=== PATIENT | female | born 1995 | race Caucasian/White ===

== ENCOUNTER 2016-10-08 12:09 | Emergency (ER) | payer BC, OTHER ==
[~2016-10-08] VITALS: Ht 157.5 cm; Wt 63.3 kg
[2016-10-08 12:12] VITALS: Ht 157.5 cm; Wt 63.3 kg
[2016-10-08] MEDS ORDERED: IBUPROFEN 600 MG TAB PO STA (12:22)
[2016-10-08] MEDS ORDERED: HYDROCODONE/ACETAMOPHEN 5/325MG TAB PO ONE (12:30)
[2016-10-08] MEDS ORDERED: AMOXICILLIN/CLAVULANATE TAB 875 MG TAB PO ONE (12:30)
[2016-10-08] MEDS ORDERED: XYLOCAINE 1%/SOD BICARB 20 ML VIAL INFIL ONE (12:30)
--- NOTE | 2016-10-08 12:58 | DIAGNOSTIC IMAGING REPORT ---
RIGHT HAND 3 VIEWS CLINICAL HISTORY: Dog bite injury. FINDINGS: 3 views of the right hand are obtained. No prior studies are available for comparison at the time of dictation. The skeletal structures are well mineralized. No fracture is identified. The joint spaces of the hand are well-maintained. Mild dorsal soft tissue swelling is identified. No radiodense foreign body or subcutaneous gas is seen. IMPRESSION: Mild soft tissue swelling with no radiographic evidence of acute fracture. Electronically signed by: Ahsan Huertas M.D. 10/08/2016 12:57 PM Dictated Date/Time: 10/08/2016 12:55 PM
[2016-10-08] MEDS ORDERED: HYDR-5688 PO (14:02)
[2016-10-08] MEDS ORDERED: AMOX875T PO (14:02)
[2016-10-08 14:16] VITALS: BP 127/78; PULSE 98; TEMP 36.9; O2SAT 97
--- NOTE | 2016-10-08 16:41 | EMERGENCY ROOM VISIT NOTE ---
History First contact with patient: 12:14 Chief Complaint: BITE Stated Complaint: DOG BITE History of Present Illness The patient is a 21 year old female who presents to the Emergency Room with complaints of several injuries after being attacked by a dog about 2 hours ago. The patient states that she was walking her dog, when another dog attacked her dog. The other dog was on a leash, and evidently has a history of unprovoked attacks in the past. The patient ended up with injuries to her right hand, right forearm, right leg, and left-sided face. The patient does have pain in these areas as well. The police are involved in the incident, and the attacking animal is reportedly up-to-date on its rabies immunizations. The patient rates her current discomfort an 8/10, worse in her hand when she opens and closes it. She has not taken anything [id number] for her discomfort. She is reportedly up-to-date on her tetanus. Review of Systems More than 10 systems were reviewed and otherwise negative with the exception of history of present illness. Past Medical/Surgical History No chronic medical disease Family History No pertinent family history Social History Smoking Status: Never Smoker Housing Status: lives with family Occupation Status: employed Current/Historical Medications Scheduled Amoxicillin & Pot Clavulanate (Augmentin 875-125 mg), 1 TAB PO BID Scheduled PRN Hydrocodone/Acetaminophen 5MG/325MG (Bly 5MG/325MG), 1 TABLET PO Q6 PRN for Pain Allergies Coded Allergies: No Known Allergies (Unverified , 10/08/16) Physical Exam Vital Signs Date Time Temp Pulse Resp B/P Pulse Ox O2 Delivery O2 Flow Rate FiO2 10/08/16 14:16 36.9 98 18 127/78 97 10/08/16 12:12 36.9 98 18 127/78 97 Room Air Pain Rating (0-10): 0 Physical Exam VITALS: Vitals are noted on the nurse's note and reviewed by myself. Vital signs stable. GENERAL: Well-developed, well-nourished, white female who is in moderate discomfort secondary to her stated complaints. She is cooperative with the examination. HEAD: Superficial abrasion appreciated behind the left ear EARS: External ear normal. External auditory canals clear, tympanic membranes pearly vargas without erythema or effusion bilaterally. EYES: Pupils equal round and reactive to light and accommodation. Conjunctivae without injection, sclerae without icterus. Extraocular movements intact. NOSE: Patent, turbinates without inflammation or discharge. MOUTH: Mucous membranes moist. Tonsils are not enlarged. Pharynx without erythema, blood, or exudate. Uvula midline. Airway patent. NECK: Supple without nuchal rigidity. No lymphadenopathy. No thyromegaly. Cervical spine is nontender. HEART: Regular rate and rhythm without murmurs gallops or rubs. LUNGS: Clear to auscultation bilaterally without wheezes, rales or rhonchi. No retractions or accessory muscle use. ABDOMEN: Positive normal bowel sounds x 4. Soft, nontender, without masses or organomegaly. No guarding or rebound tenderness. MUSCULOSKELETAL: Ecchymosis and edema is appreciated over the right hand, primarily over the dorsal third and fourth metacarpals. The patient food service ambassador strength is 3/5 in this extremity. There is a linear 3.0 cm laceration over the mid volar forearm. Superficial abrasions are also appreciated over the right leg and left elbow. No other significant lacerations or gross bleeding appreciated. There does seem to be a puncture wound to the posterior right hand. Neurovascular status is intact throughout. NEURO: Patient was alert and oriented to person place and time. CN II through XII grossly intact. Medical Decision & Procedures ER Provider Diagnostic Interpretation: RIGHT HAND 3 VIEWS CLINICAL HISTORY: Dog bite injury. FINDINGS: 3 views of the right hand are obtained. No prior studies are available for comparison at the time of dictation. The skeletal structures are well mineralized. No fracture is identified. The joint spaces of the hand are well-maintained. Mild dorsal soft tissue swelling is identified. No radiodense foreign body or subcutaneous gas is seen. IMPRESSION: Mild soft tissue swelling with no radiographic evidence of acute fracture. Medications Administered Medications (Trade) Dose Ordered Sig/Sri Route Start Time Stop Time Status Last Admin Dose Admin Lidocaine HCl (Buffered Lidocaine 1% Inj) 20 ml NOW ONCE INFIL 10/08/16 12:30 10/08/16 12:31 DC 10/08/16 12:33 20 ML Acetaminophen/ Hydrocodone Bitart (Bly 5/325 Tab) 1 tab NOW ONCE PO 10/08/16 12:30 10/08/16 12:31 DC 10/08/16 12:33 1 TAB Ibuprofen (Motrin Tab) 600 mg NOW STAT PO 10/08/16 12:22 10/08/16 12:24 DC 10/08/16 12:34 600 MG Amoxicillin/ Clavulanate Potassium (Augmentin Tab) 875 mg NOW ONCE PO 10/08/16 12:30 10/08/16 12:31 DC 10/08/16 12:36 875 MG Procedure Laceration repair. Patient elects to have their laceration repaired. Verbal consent was obtained to perform the procedure. There is an abundance of materials available for the procedure. Patient is not allergic to latex. Using sterile technique the wound was cleaned with Betadine. The area was sterilely draped. 5 ml of 1% buffered lidocaine was used to anesthetize the forearm laceration. Once the patient was anesthetized, the wound was copiously irrigated under pressure with sterile saline. The wound was explored and there were no deep structures injured such as tendons, bone, or significant blood vessels. The laceration was repaired using 3 simple interrupted 5-0 nylon sutures with the wound edges being loosely approximated. Hemostasis was achieved. The area was cleaned with sterile saline and dressed with bacitracin ointment and bandage. Patient tolerated the procedure well without complications. Blood loss was negligible. ED Course Physical exam and history were performed. Nursing notes and EMR were reviewed. Patient appears to have suffered multiple injuries in a dog attack a few hours ago. The police are involved and the dog bite form has been completed. The patient wounds were cleansed and dressed, and her primary injuries appear to be to the right hand and the right forearm. An x-ray was obtained of the right hand does not show evidence of foreign body or bony injury. The right forearm does have a laceration that does gape, and was loosely closed as above. The patient was given Vicodin and Augmentin here in the department. I had a lengthy discussion with the patient and her family regarding possible need for rabies immunizations. The family has verbal confirmation that the animal is up-to-date on the rabies shots, however we do not have confirmation of this by the director search or with a certificate/receipt of the shot. Because of this I did offer rabies prophylaxis, however the family is confident they can obtain this information by the process owner of the animal. I did ask them to return later today if they are not able to adequately obtain this information, and they were pleased with this. The patient will be given a continued course of Augmentin and a short course of Vicodin. She is otherwise asked to follow with her PCP with any ongoing or persisting symptoms. The chart was completed utilizing [employer] Speech Voice Recognition Software. Grammatical errors, random word insertions, pronoun errors, and incomplete sentences are an occasional consequence of this system due to software limitations, ambient noise, and hardware issues. Any formal questions or concerns about the content, text, or information contained within the body of this dictation should be directly addressed to the provider for clarification. . Medical Decision Differential diagnosis includes, but is not limited to: Sprain, strain, dog bite , assault, infection, foreign body, laceration, and others Impression Primary Impression: Dog bite Additional Impression: Laceration of forearm Departure Information Dispostion Home / Self-Care Condition GOOD Prescriptions Hydrocodone/Acetaminophen 5MG/325MG (Bly 5MG/325MG) Tab 1 TABLET PO Q6 Y for Pain, #12 TAB For Initial Treatment Prov: Kwesi Ruelas PA-C 10/08/16 Amoxicillin & Pot Clavulanate (Augmentin 875-125 mg) 1 Tab Tab 1 TAB PO BID for 10 Days, #20 TAB Prov: Kwesi Ruelas PA-C 10/08/16 Forms HOME CARE DOCUMENTATION FORM, IMPORTANT VISIT INFORMATION Patient Instructions My [facility] Additional Instructions You were seen and evaluated today on an emergency basis only. This is not a substitute for, or an effort to provide, complete comprehensive medical care. It is not possible to recognize and treat all injuries or illnesses in a single emergency department visit. For this reason it is recommended that you followup with your primary care physician in the next 2-3 days for recheck of your condition. For baseline pain relief you may alternate ibuprofen and acetaminophen every 4 hours for pain control. Take 600 mg ibuprofen (Advil) and then 4 hours later take 1000 mg acetaminophen (Tylenol). Do not take more than 3000 mg acetaminophen in a single day. Bly (hydrocodone/acetaminophen) 5/325 mg every 6 hours as needed for worsening breakthrough pain. Do not drink or drive on Bly. This medication will likely make you tired. Do not take Bly and Tylenol at the same time as both contain acetaminophen. Bly may cause constipation. You may wish to take an [id number] stool softener like Colace if this occurs. Amoxicillin Clavulanate (Augmentin) 875mg: Take one pill twice daily for 10 days for your infection. All antibiotics can cause diarrhea. If this occurs and you feel worse or it does not resolve in 1-2 days follow up with your doctor or return to the Emergency Department as this could be signs of serious underlying problems. Any medication can cause an allergic reaction, stop the pills immediately and return to the ER for rash, hives, breathing difficulties, or swelling. If you are unable to confirm the animal's rabies status please return to the emergency department to begin rabies shots. You are welcome to return to the emergency department anytime with new, worsening, or concerning symptoms. Problem Qualifiers
== END 2016-10-08 14:17 | disposition home or self-care (01) ==
LOC: C.EDB 12:11 → C.EDD 14:17
DX: S51.851A Open bite of right forearm, initial encounter (principal); S00.412A Abrasion of left ear, initial encounter; S50.312A Abrasion of left elbow, initial encounter; S80.811A Abrasion, right lower leg, initial encounter; W54.0XXA Bitten by dog, initial encounter; Y93.K1 Activity, walking an animal

== ENCOUNTER 2020-01-12 05:29 | Inpatient (IN) ==
[2020-01-12] MEDS: LACTATED RINGER'S 1,000 ML IV SCH ×2 (05:40→06:44)
[2020-01-12] MEDS ORDERED: LACTATED RINGER'S 1,000 ML IV SCH ×2 (05:45→09:45)
[2020-01-12] MEDS ORDERED: CITRIC ACID/SODIUM CITRATE 15 ML UDC PO SCH (06:00)
[2020-01-12] MEDS ORDERED: CEFAZOLIN 2,000 MG in SYRINGE 0 ML IV SCH (06:00)
[2020-01-12 06:20] LABS: Basophils # (auto) 0.01 K/uL (0-0.2); Basophils % (auto) 0.1 %; Eosinophils # (auto) 0.07 K/uL (0-0.5); Eosinophils % (auto) 0.8 %; Hematocrit (blood only) 31.4 % (37-47); Hemoglobin 10.3 g/dL (12.0-16.0); Immature Granulocytes # (auto) 0.05 K/uL (0.00-0.02); Immature Granulocytes % (auto) 0.6 %; Lymphocytes # (auto) 1.71 K/uL (1.2-3.4); Mean Corpuscular Hemoglobin 28.1 pg (25-34); Mean Corpuscular Volume 85.8 fL (80-100); Monocytes # (auto) 0.79 K/uL (0.11-0.59); Monocytes % (auto) 9.2 %; Neutrophils # (auto) 5.94 K/uL (1.4-6.5); Neutrophils % (auto) 69.3 %; Platelet Count 233 K/uL (130-400); RDW Coefficient of Variation 13.1 % (11.5-14.5); RDW Standard Deviation 40.8 fL (36.4-46.3); Red Blood Count 3.66 M/uL (4.2-5.4); White Blood Count 8.57 K/uL (4.8-10.8)
[2020-01-12 06:21] LABS: Mean Corpuscular Hgb Conc 32.8 g/dL (32-36)
[2020-01-12] MEDS ORDERED: MoRPHine SULFATE PF 1 MG/ML 10 ML AMP/VIAL ONE (06:45)
[2020-01-12] MEDS ORDERED: fentaNYL citrate 100 MCG/2 ML VIAL ONE (06:45)
[2020-01-12] MEDS ORDERED: OXYTOCIN 10 UNITS/ML VIAL ONE (06:45)
[2020-01-12] MEDS ORDERED: NALOXONE HCL 0.4 MG/1 ML VIAL/CARP IV PRN (07:03)
[2020-01-12] MEDS ORDERED: MoRPHine SULFATE 2 MG/ML CARP IV PRN (07:03)
[2020-01-12] MEDS ORDERED: MoRPHine SULFATE PF 1 MG/ML 10 ML AMP/VIAL INT SPINAL ONE (07:03)
[2020-01-12] MEDS ORDERED: PROMETHAZINE HCL 12.5 MG in SODIUM CHLORIDE 0.9% 50 ML IV PRN (07:03)
[2020-01-12] MEDS ORDERED: DiphenhydrAMINE HCL 50 MG/ML VIAL IV PRN (07:03)
[2020-01-12] MEDS ORDERED: LACTATED RINGER'S 500 ML IV PRN (07:03)
[2020-01-12] MEDS ORDERED: NALOXONE HCL 0.08 MG in SYRINGE 1.8 ML IV PRN (07:03)
[2020-01-12] MEDS ORDERED: ePHEDrine sulfate 50 MG/ML AMP IV PRN (07:03)
[2020-01-12] MEDS ORDERED: ONDANSETRON INJ 2 MG/ML 2 ML VIAL IV PRN (07:03)
[2020-01-12] MEDS ORDERED: NALOXONE HCL 1 MG in SODIUM CHLORIDE 0.9% 1000ML 1,000 ML IV PRN (07:03)
--- NOTE | 2020-01-12 07:06 | Anesthesiology Consultation ---
Date of Service January 12, 2020 Assessment & Plan ASA ASA2 Proposed Anesthesia Anesthesia Type: Spinal Risk / Benefits Reviewed With: PT / POA / Parent / Guardian, Accepts Plan and Informed Consent Obtained History Surgery Operation Date: 01/12/20 07:30 Proposed Procedures p Section - Candi Alejandro MD Height/Weight Height: 5 ft 2 in Weight: 90.718 kg Allergies Allergy/AdvReac Type Severity Reaction Status Date / Time gluten AdvReac Diarrhea Verified 01/12/20 06:06 Medications Home Medications Medication Instructions Recorded Confirmed Last Taken prenat.vits,nathan,naf-holw-apnww 1 tab PO DAILY 01/12/20 01/12/20 01/11/20 08:00 [ Vitamin] Active Medications Generic Name Dose Route Start Last Admin Trade Name Freq PRN Reason Stop Dose Admin Lactated Ringer's 1,000 mls @ 999 mls/hr 01/12/20 06:00 01/12/20 06:44 Lr IV 01/12/20 18:00 125 mls/hr .Q1H1M SHANNA Administration NPO Date Last Intake of Fluids: 01/12/20 Time Last Intake of Fluids: 00:00 Date Last Intake of Solids: 01/12/20 Time Last Intake of Solids: 00:00 Past Medical History Medical History Celiac disease High blood pressure during the last two weeks and OB is monitoring Exercise / Class Metabolic Activity II 4-5 Yardwork/Stairs/Walk up hill Past Surgical History Surgical History History of tonsillectomy and adenoidectomy Hx of colonoscopy Hx of esophagogastroduodenoscopy Past Anesthesia History No Hx of Anesthesia Complications and No Family Hx of Anesthesia Complications History of PONV No Hx of PONV and No Hx of Motion Sickness Social History Smoking Status: Never smoker Do You Dip or Chew Tobacco: No Smoking End Date: 2013 Hx Alcohol Use: No Hx Substance Use: No substance use type: does not use Review of Systems denies fever/cough/ colds/ chest pain/ SOB/ TERRI Constitutional: no fever and no chills Respiratory: no cough and no dyspnea denies TERRI Cardiovascular: no chest pain and no dyspnea on exertion Physical Exam Vital Signs Last Vital Signs Temp 36.7 C 01/12/20 05:39 Pulse 92 H 01/12/20 07:04 Resp 18 01/12/20 05:39 BP 146/94 H 01/12/20 07:04 ENMT Mouth: no TMJ abnormality and no dentition abnormality Thyromental Distance: > or= 3.5 Finger Breadths Mallampati Class: II Neck neck extension not limited Respiratory normal respiratory effort; no respiratory distress Auscultation: lungs clear to auscultation bilaterally Cardiovascular Rate/Rhythm: regular rate and regular rhythm Neurologic moves all extremities Psychiatric Orientation: alert and oriented x 3 Testing Laboratory Results 01/12/20 05:56
[2020-01-12] MEDS ORDERED: SODIUM CHLORIDE 0.9% 1000ML 1,000 ML IV SCH (07:15)
[2020-01-12] MEDS ORDERED: DC INTRASPINAL MORPHINE SCH (07:15)
[2020-01-12] MEDS ORDERED: NO NARCOTICS OR SEDATIVES SCH (07:15)
--- NOTE | 2020-01-12 07:26 | History & Physical Bridge Note ---
Date of Service January 12, 2020 History & Physical Bridge Note I have examined the patient, reviewed the History & Physical and in the interval since the performance of the History & Physical I have noted the following changes of clinical significance: no changes noted Bed side US: Eliseo, FHR 140's, categ I
[2020-01-12] MEDS ORDERED: ONDANSETRON INJ 2 MG/ML 2 ML VIAL ONE (08:28)
[2020-01-12] MEDS ORDERED: PHENYLEPHRINE 100MCG/ML 5ML SYR ONE (08:28)
[2020-01-12] MEDS ORDERED: DIPHTHERIA/TETANUS/PERTUSSIS 0.5 ML SYR/VIAL IM ONE (09:31)
[2020-01-12] MEDS ORDERED: BENZOCAINE 20% AER SPR 82.5 GM CAN EXT PRN (09:31)
[2020-01-12] MEDS ORDERED: MAGNESIUM HYDROXIDE SUSP 30 ML UDC PO PRN (09:31)
[2020-01-12] MEDS ORDERED: SUPERCREAM 0.870% 15 GM JAR EXT PRN (09:31)
[2020-01-12] MEDS ORDERED: HYDROCORTISONE ACETATE 25 MG SUPP PR PRN (09:31)
[2020-01-12] MEDS ORDERED: MEASLES, MUMPS & RUBELLA VIRUS VIAL SQ ONE (09:31)
[2020-01-12] MEDS ORDERED: SENNA 8.6 MG TAB PO PRN (09:31)
--- NOTE | 2020-01-12 09:31 | Post Operative Brief Note ---
Immediate Post Op Note v1 Date of Surgery January 12, 2020 Pre & Post Diagnosis Operation Date: 01/12/20 07:30 Pre-Op Diagnosis: primary cesearean section for breech presentation Post-Op Diagnosis: ceserean section for breech presentation of live male infant at 0817 I identified the patient and participated in the time-out.: Yes Procedure Operation Date: 01/12/20 07:30 Actual Procedures p Section in labor and delivery for live male infant at 0817(Left) - Candi Alejandro MD Surgeon Candi Alejandro MD Silk Opener UZAIR Estimated Blood Loss 600 Findings Consistent with Post-Op Diagnosis Drains Cruz Catheter Anesthesia Type Spinal Complications none
--- NOTE | 2020-01-12 10:13 | Anesthesiology Progress Note ---
Date of Service January 12, 2020 Anesthesia Post Procedure Vital Signs Vital Signs: Temp Pulse Resp BP Pulse Ox 01/12/20 10:08 89 99 01/12/20 10:04 108 H 135/99 01/12/20 10:03 110 H 98 01/12/20 09:58 98 H 99 01/12/20 09:55 20 01/12/20 09:54 101 H 135/80 01/12/20 09:53 103 H 98 01/12/20 09:48 114 H 97 01/12/20 09:45 114 H 20 145/75 H 97 01/12/20 09:44 109 H 171/90 H 01/12/20 09:43 106 H 98 01/12/20 09:38 98 H 97 01/12/20 09:35 18 01/12/20 09:34 117 H 167/95 H 01/12/20 09:33 122 H 98 01/12/20 09:28 136 H 98 01/12/20 09:25 18 01/12/20 09:24 120 H 18 144/71 H 01/12/20 09:23 116 H 60 L 01/12/20 09:18 114 H 99 01/12/20 09:13 36.9 C 100 H 16 145/68 H 100 01/12/20 09:08 120 H 100 01/12/20 07:04 92 H 146/94 H 01/12/20 07:00 36.7 C 20 01/12/20 06:21 85 125/89 01/12/20 05:39 36.7 C 117 H 18 142/94 H 01/12/20 05:37 117 H 142/94 H 01/12/20 05:35 120 H 138/104 H Transfer of Care Handoff Completed per policy Notes Mental Status: alert / awake / arousable and participated in evaluation Patient Amnestic to Procedure: Yes Nausea / Vomiting: adequately controlled Pain: adequately controlled Airway Patency, RR, SpO2: stable & adequate BP & HR: stable & adequate Hydration State: stable & adequate Anesthetic Complications: no major complications apparent and Pt Satisfied with anesthetic care
[2020-01-12 10:43] LABS: Basophils # (auto) 0.02 K/uL (0-0.2); Basophils % (auto) 0.1 %; Eosinophils # (auto) 0.01 K/uL (0-0.5); Eosinophils % (auto) 0.1 %; Hemoglobin 10.5 g/dL (12.0-16.0); Immature Granulocytes # (auto) 0.09 K/uL (0.00-0.02); Immature Granulocytes % (auto) 0.7 %; Lymphocytes # (auto) 1.01 K/uL (1.2-3.4); Lymphocytes % (auto) 7.5 %; Mean Corpuscular Hemoglobin 28.3 pg (25-34); Mean Corpuscular Hgb Conc 32.8 g/dL (32-36); Mean Corpuscular Volume 86.3 fL (80-100); Mean Platelet Volume 10.9 fL (7.4-10.4); Monocytes # (auto) 0.81 K/uL (0.11-0.59); Neutrophils # (auto) 11.57 K/uL (1.4-6.5); Neutrophils % (auto) 85.6 %; Platelet Count 260 K/uL (130-400); RDW Coefficient of Variation 13.3 % (11.5-14.5); RDW Standard Deviation 41.7 fL (36.4-46.3); Red Blood Count 3.71 M/uL (4.2-5.4); White Blood Count 13.51 K/uL (4.8-10.8)
[2020-01-12] MEDS: OXYTOCIN 20 UNITS in LACTATED RINGER'S 1,000 ML IV SCH ×2 (10:53→18:34)
[2020-01-12 11:07] LABS: Albumin Level 2.2 gm/dl (3.4-5.0); BUN Creatinine Ratio 11.7 (10-20); Calcium 8.3 mg/dl (8.5-10.1); Est GFR (African American) 144.2; Est GFR (Non-African American) 124.4; Potassium 4.2 mmol/L (3.5-5.1)
[2020-01-12 11:10] LABS: Albumin Globulin Ratio 0.7 (0.9-2); Bilirubin,Total 0.4 mg/dl (0.2-1); Globulin 3.3 gm/dl (2.5-4.0); Total Protein 5.5 gm/dl (6.4-8.2)
--- NOTE | 2020-01-12 11:17 | Operative Report (OR) ---
DATE OF OPERATION: 01/12/2020 PREOPERATIVE DIAGNOSES: The patient is a 24-year-old 1, para 0, at 39.1 weeks of gestation Breech presentation at term. Declined external cephalic version. POSTOPERATIVE DIAGNOSES: The patient is a 24-year-old 1, para 0, at 39.1 weeks of gestation Breech presentation at term. Declined external cephalic version. PROCEDURE: Primary low transverse with Pfannenstiel skin incision. SURGEON: Candi Alejandro MD. CONTROLS PROJECT ENGINEER: Jabari Ag MD. ESTIMATED BLOOD LOSS: 600 mL. DRAINS: Cruz catheter drained 300 mL of urine. FLUIDS: 1200 mL of lactated Ringer. ANESTHESIA: Spinal. ANESTHESIOLOGIST: Dr. Larkin. COMPLICATIONS: None. FINDINGS: Baby was a viable male delivered at 8:17 a.m. in complete breech presentation, Apgars were 8/9, weight was 3680 grams. Maternal findings; normal uterus, fallopian tubes and ovaries. DESCRIPTION OF PROCEDURE: The patient was taken to the operating room where spinal anesthesia was given without difficulty. She was placed in dorsal supine position with a leftward tilt. She was prepared and draped in usual sterile fashion. A Pfannenstiel skin incision was made and carried through to the underlying layer of fascia with the Bovie. Fascia was incised in the midline and incision was extended laterally with the help of Musa scissors and upper aspect of the fascial incision was then grasped with 2 Marialuisa clamps, elevated, underlying rectus muscles were dissected off sharply with Musa scissors. Lower aspect of the fascial incision was then grasped with 2 Marialuisa clamps, elevated, underlying rectus muscles were dissected off sharply with Musa scissors. Rectus muscles were in the midline. Peritoneum was entered bluntly with fingers and the peritoneal incision was extended superiorly and inferiorly with good visualization of the bladder. Then, Daren abdominal retractor was placed to retract the abdominal wall and the vesicouterine peritoneum was identified, grasped with pickups and entered sharply with Metzenbaum scissors and a bladder flap was created digitally and a bladder blade was inserted. Lower uterine segment was incised in transverse fashion, incision was extended laterally with the help of fingers. Membranes ruptured, clear fluid was obtained. Baby's buttocks were delivered and then legs and then body and then arms in flexion position and head without difficulty. Mouth and nose were suctioned. Cord was clamped x2 and cut in 1 minute delay and baby was handed off to the waiting pediatric team. Placenta was delivered manually as intact and complete. Uterus was exteriorized, cleared of all clots and debris. Uterine incision was repaired with 0 Vicryl in a running locked fashion and a second imbricating layer was placed with 0 Vicryl in a running fashion. Excellent hemostasis was achieved. The uterus was returned to the abdomen. The pelvis was irrigated with warm normal saline and suctioned. Incision was checked to be again hemostatic. Parietal peritoneum was reapproximated with 3-0 Vicryl in a running fashion. Rectus muscles were reapproximated with 2 U-type of sutures with 2-0 Vicryl and excellent hemostasis was achieved. Rectus fascia was reapproximated with 0 Vicryl in a running fashion starting from both corners and meeting in the midline. Subcuticular fat tissue was brought together with 3-0 Vicryl in a running fashion. Skin was closed with 4-0 Monocryl in a subcuticular fashion. The patient tolerated the procedure well. Sponge, lap, needle count was correct x3. She was taken to recovery room in stable condition, no complications happened. I was and Dr. Ag was present during whole procedure. My hr administrative assistant was needed for retraction, visualization, suction and hemostasis as well as assisting with delivery of baby. I attest to the content of the Intraoperative Record and any orders documented therein. Any exceptions are noted below. CATHLEEN
[2020-01-12] MEDS: KETOROLAC 30 MG/ML VIAL IV PRN (11:27)
[2020-01-12] MEDS ORDERED: KETOROLAC 30 MG/ML VIAL IV PRN (12:00)
[2020-01-12] MEDS: SIMETHICONE 80 MG CHEW PO SCH ×2 (16:03→21:42)
[2020-01-12] MEDS: DOCUSATE SODIUM 100 MG CAP PO SCH (21:42)
[2020-01-13] MEDS ORDERED: DiphenhydrAMINE HCL 50 MG/ML VIAL IV PRN (01:04)
[2020-01-13] MEDS ORDERED: ONDANSETRON INJ 2 MG/ML 2 ML VIAL IV PRN (01:04)
[2020-01-13] MEDS ORDERED: PROMETHAZINE HCL 25 MG in SODIUM CHLORIDE 0.9% 50 ML IV PRN (01:04)
[2020-01-13] MEDS ORDERED: MEPERIDINE HCL 50 MG/ML CARP IV PRN (01:04)
[2020-01-13] MEDS: KETOROLAC 30 MG/ML VIAL IV PRN (01:35)
[2020-01-13] MEDS: OXYCODONE/ACETAMINOPHEN 5mg/325mg TAB PO PRN ×5 (05:11→22:26)
[2020-01-13 05:58] LABS: Basophils # (auto) 0.02 K/uL (0-0.2); Basophils % (auto) 0.2 %; Eosinophils # (auto) 0.06 K/uL (0-0.5); Eosinophils % (auto) 0.6 %; Hematocrit (blood only) 27.4 % (37-47); Hemoglobin 9.1 g/dL (12.0-16.0); Immature Granulocytes # (auto) 0.04 K/uL (0.00-0.02); Immature Granulocytes % (auto) 0.4 %; Lymphocytes % (auto) 15.1 %; Mean Corpuscular Hemoglobin 29.1 pg (25-34); Mean Corpuscular Hgb Conc 33.2 g/dL (32-36); Mean Corpuscular Volume 87.5 fL (80-100); Mean Platelet Volume 10.4 fL (7.4-10.4); Monocytes # (auto) 0.96 K/uL (0.11-0.59); Monocytes % (auto) 10.3 %; Neutrophils % (auto) 73.4 %; Platelet Count 202 K/uL (130-400); RDW Coefficient of Variation 13.3 % (11.5-14.5); RDW Standard Deviation 43.1 fL (36.4-46.3); Red Blood Count 3.13 M/uL (4.2-5.4); White Blood Count 9.28 K/uL (4.8-10.8)
--- NOTE | 2020-01-13 08:14 | Obstetrical Progress Note ---
Date of Service January 13, 2020 Assessment & Plan (1) delivery delivered: POD #1 pt doing well continue day #1 care Subjective Ambulation: ambulating normally Voiding: no voiding problems Passing Gas:: Yes Diet Tolerance:: regular diet Lochia:: Small Feeding Type:: breast feeding Review of Systems All systems reviewed & are unremarkable except as noted in HPI & below Physical Exam Constitutional WD/WN, vitals as above well developed and well nourished Eyes PERRL, conjunctivae normal, anicteric sclerae Neck trachea midline, no thyromegaly Respiratory normal respiratory effort, lungs clear to auscultation Auscultation: no crackles, no rales and no wheezes Cardiovascular RRR, no murmur, no edema Gastrointestinal (Abdomen) normal bowel sounds, soft, nontender, no hepatosplenomegaly Uterus is below umbilicus Musculoskeletal no cyanosis or clubbing, extremities motor strength 5/5 Skin no rashes, warm and dry Neurologic patellar DTR's 2+ bilat, sensation intact Psychiatric A+Ox3, euthymic affect Genitourinary normal external appearance Results & Data ([facility]) Vital Signs (Past 12 Hours) Vital Signs Temp Pulse Resp BP Pulse Ox 01/13/20 08:00 36.8 C 86 18 114/76 97 01/13/20 04:50 36.8 C 84 16 114/75 98 01/13/20 01:30 36.9 C 85 15 112/72 100 01/13/20 00:40 16 100 01/12/20 23:40 16 99 01/12/20 22:40 15 98 01/12/20 21:40 16 99 01/12/20 20:40 15 98
[2020-01-13] MEDS: SIMETHICONE 80 MG CHEW PO SCH ×5 (08:38→20:04)
[2020-01-13] MEDS: IBUPROFEN 600 MG TAB PO PRN ×3 (08:38→22:25)
[2020-01-13] MEDS: DOCUSATE SODIUM 100 MG CAP PO SCH ×2 (08:39→20:04)
[2020-01-13] MEDS: PRENATAL VITAMIN 1 TAB PO SCH (08:40)
[2020-01-13] MEDS: FERROUS SULFATE 325 MG TAB PO SCH (08:40)
[2020-01-13] MEDS ORDERED: bisacodyL 5 MG TABEC PO SCH (20:00)
[2020-01-14] MEDS: OXYCODONE/ACETAMINOPHEN 5mg/325mg TAB PO PRN ×5 (03:57→21:05)
[2020-01-14] MEDS: IBUPROFEN 600 MG TAB PO PRN ×5 (03:57→21:05)
--- NOTE | 2020-01-14 06:37 | Obstetrical Progress Note ---
Date of Service January 14, 2020 Assessment & Plan (1) delivery delivered: POD #2 pt doing well antiicpate disc tomorrow Subjective Ambulation: ambulating normally Voiding: no voiding problems Passing Gas:: Yes Diet Tolerance:: regular diet Lochia:: Small Feeding Type:: breast feeding Review of Systems All systems reviewed & are unremarkable except as noted in HPI & below Physical Exam Constitutional WD/WN, vitals as above well developed and well nourished Eyes PERRL, conjunctivae normal, anicteric sclerae Neck trachea midline, no thyromegaly Respiratory normal respiratory effort, lungs clear to auscultation Auscultation: no crackles, no rales and no wheezes Cardiovascular RRR, no murmur, no edema Gastrointestinal (Abdomen) normal bowel sounds, soft, nontender, no hepatosplenomegaly Uterus is below umbilicus Musculoskeletal no cyanosis or clubbing, extremities motor strength 5/5 Skin no rashes, warm and dry Neurologic patellar DTR's 2+ bilat, sensation intact Psychiatric A+Ox3, euthymic affect Genitourinary normal external appearance Results & Data ([facility]) Vital Signs (Past 12 Hours) Vital Signs Temp Pulse Resp BP 01/14/20 00:00 37.1 C 109 H 18 119/78
[2020-01-14 08:06] LABS: Hematocrit (blood only) 28.1 % (37-47)
[2020-01-14] MEDS: DOCUSATE SODIUM 100 MG CAP PO SCH ×2 (08:47→22:02)
[2020-01-14] MEDS: SIMETHICONE 80 MG CHEW PO SCH ×4 (08:47→22:02)
[2020-01-14] MEDS: PRENATAL VITAMIN 1 TAB PO SCH (08:47)
[2020-01-14] MEDS: FERROUS SULFATE 325 MG TAB PO SCH (08:48)
[2020-01-14] MEDS ORDERED: bisacodyL 10 MG SUPP PR PRN (09:32)
[2020-01-15] MEDS: SIMETHICONE 80 MG CHEW PO SCH ×2 (08:38→13:08)
[2020-01-15] MEDS: OXYCODONE/ACETAMINOPHEN 5mg/325mg TAB PO PRN ×2 (08:39→13:09)
[2020-01-15] MEDS: PRENATAL VITAMIN 1 TAB PO SCH (08:39)
[2020-01-15] MEDS: FERROUS SULFATE 325 MG TAB PO SCH (08:40)
[2020-01-15] MEDS: DOCUSATE SODIUM 100 MG CAP PO SCH (08:40)
[2020-01-15] MEDS: IBUPROFEN 600 MG TAB PO PRN ×2 (08:40→13:08)
--- NOTE | 2020-01-15 10:42 | Obstetrical Progress Note ---
Date of Service January 15, 2020 Assessment & Plan Admission and Anticipated Discharge Date Admission Date: January 12, 2020 Subjective Patient is seen and examined. She feels well, no complaints. Pain is under control with oral meds. Ambulating without dizziness Voiding without difficulty Tolerating regular diet with out N&V Flatus YES BM NO Bleeding is minimal No LIGHT/ Change in vision/ epig or RUQ pain/ fever/ chills/ CP/ SOB/ N&V/ Leg pain Breast and bottle feeding without problems Vital Signs Temp Pulse Resp BP Pulse Ox 01/14/20 23:50 36.5 C 93 H 18 128/77 99 01/14/20 16:20 36.9 C 100 H 18 129/87 99 Lab Results 01/12/20 01/12/20 01/12/20 Range/Units 05:56 05:56 10:23 WBC 8.57 13.51 H (4.8-10.8) K/uL RBC 3.66 L 3.71 L (4.2-5.4) M/uL Hgb 10.3 L 10.5 L (12.0-16.0) g/dL Hct 31.4 L 32.0 L (37-47) % MCV 85.8 86.3 (80-100) fL MCH 28.1 28.3 (25-34) pg MCHC 32.8 32.8 (32-36) g/dL RDW Std Deviation 40.8 41.7 (36.4-46.3) fL RDW Coeff of Fariba 13.1 13.3 (11.5-14.5) % Plt Count 233 260 (130-400) K/uL MPV 11.0 H 10.9 H (7.4-10.4) fL Immature Gran % (Auto) 0.6 0.7 % Neut % (Auto) 69.3 85.6 % Lymph % (Auto) 20.0 7.5 % Jack % (Auto) 9.2 6.0 % Eos % (Auto) 0.8 0.1 % Baso % (Auto) 0.1 0.1 % Neut # (Auto) 5.94 11.57 H (1.4-6.5) K/uL Lymph # (Auto) 1.71 1.01 L (1.2-3.4) K/uL Jack # (Auto) 0.79 H 0.81 H (0.11-0.59) K/uL Eos # (Auto) 0.07 0.01 (0-0.5) K/uL Baso # (Auto) 0.01 0.02 (0-0.2) K/uL Immature Gran # (Auto) 0.05 H 0.09 H (0.00-0.02) K/uL Sodium (136-145) mmol/L Potassium (3.5-5.1) mmol/L Chloride (98-107) mmol/L Carbon Dioxide (21-32) mmol/L Anion Gap (3-11) BUN (7-18) mg/dl Creatinine (0.6-1.2) mg/dl Est Cr Clr Drug Dosing ml/min Est GFR ( Amer) Est GFR (Non-Af Amer) BUN/Creatinine Ratio (10-20) Glucose (70-99) mg/dl Calcium (8.5-10.1) mg/dl Total Bilirubin (0.2-1) mg/dl AST (15-37) U/L ALT (12-78) U/L Alkaline Phosphatase (45-117) U/L Total Protein (6.4-8.2) gm/dl Albumin (3.4-5.0) gm/dl Globulin (2.5-4.0) gm/dl Albumin/Globulin Ratio (0.9-2) Blood Type B Positive Antibody Screen NEGATIVE 01/12/20 01/13/20 01/14/20 Range/Units 10:23 05:44 07:38 WBC 9.28 (4.8-10.8) K/uL RBC 3.13 L (4.2-5.4) M/uL Hgb 9.1 L 9.0 L (12.0-16.0) g/dL Hct 27.4 L 28.1 L (37-47) % MCV 87.5 (80-100) fL MCH 29.1 (25-34) pg MCHC 33.2 (32-36) g/dL RDW Std Deviation 43.1 (36.4-46.3) fL RDW Coeff of Fariba 13.3 (11.5-14.5) % Plt Count 202 (130-400) K/uL MPV 10.4 (7.4-10.4) fL Immature Gran % (Auto) 0.4 % Neut % (Auto) 73.4 % Lymph % (Auto) 15.1 % Jack % (Auto) 10.3 % Eos % (Auto) 0.6 % Baso % (Auto) 0.2 % Neut # (Auto) 6.80 H (1.4-6.5) K/uL Lymph # (Auto) 1.40 (1.2-3.4) K/uL Jack # (Auto) 0.96 H (0.11-0.59) K/uL Eos # (Auto) 0.06 (0-0.5) K/uL Baso # (Auto) 0.02 (0-0.2) K/uL Immature Gran # (Auto) 0.04 H (0.00-0.02) K/uL Sodium 140 (136-145) mmol/L Potassium 4.2 (3.5-5.1) mmol/L Chloride 112 H (98-107) mmol/L Carbon Dioxide 20 L (21-32) mmol/L Anion Gap 8.0 (3-11) BUN 7 (7-18) mg/dl Creatinine 0.62 (0.6-1.2) mg/dl Est Cr Clr Drug Dosing 144.0 ml/min Est GFR ( Amer) 144.2 Est GFR (Non-Af Amer) 124.4 BUN/Creatinine Ratio 11.7 (10-20) Glucose 79 (70-99) mg/dl Calcium 8.3 L (8.5-10.1) mg/dl Total Bilirubin 0.4 (0.2-1) mg/dl AST 29 (15-37) U/L ALT 20 (12-78) U/L Alkaline Phosphatase 141 H (45-117) U/L Total Protein 5.5 L (6.4-8.2) gm/dl Albumin 2.2 L (3.4-5.0) gm/dl Globulin 3.3 (2.5-4.0) gm/dl Albumin/Globulin Ratio 0.7 L (0.9-2) Blood Type Antibody Screen PE: General: Alert, orientedx3, NAD CVS: S1S2 RRR Lungs; CTAB Abd: soft, NT, ND, BS+, fundus firm, below Umbilicus Incision: Clean, dry, intact Perineum intact, Lochia rubra minimal Ext; NT, no edema AP: 24 yo s/p C Section, pod# 3 VSS Afebrile doing well Continue routine postop care Encourage ambulation, PO intake All questions were answered D/C home , f/u in office Results & Data ([facility]) Vital Signs (Past 12 Hours) Vital Signs Temp Pulse Resp BP Pulse Ox 01/14/20 23:50 36.5 C 93 H 18 128/77 99
[2020-01-15] MEDS ORDERED: MAGNESIUM HYDROXIDE SUSP 30 ML UDC PO ONE (10:43)
[2020-01-15 11:06] LABS: Basophils # (auto) 0.02 K/uL (0-0.2); Basophils % (auto) 0.2 %; Eosinophils # (auto) 0.19 K/uL (0-0.5); Eosinophils % (auto) 2.3 %; Hematocrit (blood only) 31.8 % (37-47); Immature Granulocytes # (auto) 0.09 K/uL (0.00-0.02); Immature Granulocytes % (auto) 1.1 %; Lymphocytes # (auto) 1.26 K/uL (1.2-3.4); Lymphocytes % (auto) 15.4 %; Mean Corpuscular Hemoglobin 27.9 pg (25-34); Mean Corpuscular Hgb Conc 31.4 g/dL (32-36); Mean Corpuscular Volume 88.8 fL (80-100); Mean Platelet Volume 10.1 fL (7.4-10.4); Monocytes # (auto) 0.65 K/uL (0.11-0.59); Neutrophils # (auto) 5.95 K/uL (1.4-6.5); Platelet Count 288 K/uL (130-400); RDW Coefficient of Variation 13.5 % (11.5-14.5); RDW Standard Deviation 43.9 fL (36.4-46.3); Red Blood Count 3.58 M/uL (4.2-5.4); White Blood Count 8.16 K/uL (4.8-10.8)
[2020-01-15 11:24] LABS: Albumin Level 2.3 gm/dl (3.4-5.0); Calcium 9.1 mg/dl (8.5-10.1); Creatinine Clr Calc Pharmacy 129.4 ml/min; Est GFR (African American) 139.2; Est GFR (Non-African American) 120.1; Potassium 4.4 mmol/L (3.5-5.1)
[2020-01-15 11:27] LABS: Albumin Globulin Ratio 0.6 (0.9-2); Bilirubin,Total 0.3 mg/dl (0.2-1); Globulin 3.6 gm/dl (2.5-4.0); Total Protein 5.9 gm/dl (6.4-8.2)
--- NOTE | 2020-02-07 10:20 | Discharge Summary (DS) ---
DETAILS OF ADMISSION: The patient is a 24-year-old G1, P0 at 39 weeks and 1 day of gestation, who presented to Labor and Delivery on 01/12/2020 for scheduled primary due to breech presentation at term. She delivered a viable male in breech presentation at 8:17 a.m. in the morning of 01/12/2020. Her surgery was uncomplicated. See dictated OP note for details. On postop period, the patient was doing well. Vital signs stable, afebrile. Urine output was adequate and on postop day #1, the patient was doing well. Vital signs stable, afebrile. Ambulating, tolerating regular diet and voiding. Her H and H was 9.1/27.4. On postop day #2, the patient was doing well. Vital signs stable, afebrile. Her physical exam was unremarkable. Incision was clean, dry and intact. She was passing gas, ambulating, tolerating regular diet. On postop day #3, the patient was doing well. Vital signs stable, afebrile. Pain was under control with medications. Passing gas, breast and bottle feeding. Her H and H was 10.5/32.0 and the patient desired to be discharged on 01/15/2020. Discharge instructions were given when to call, prescriptions were written for pain. She is to be seen in the office in a week. All questions were answered.
== END 2020-01-15 13:20 | disposition home or self-care (01) | DRG 788 ==
LOC: 4S1 05:29 → EDSTATUS 07:30 → 4S2 11:40